=== PATIENT | male | born 1975 | race Caucasian/White ===

== ENCOUNTER 2020-09-19 18:05 | Emergency (ER) | payer OTHER ==
[~2020-09-19 18:05] MED LIST: COZAAR50 MG PO; DOXEPIN HCL100 MG PO; LOSARTAN-HCTZ1 EACH PO; NORVASC10 MG PO; REVATIO 20MG TA20 MG PO; TOPROL XL 25MG25 MG PO; TRAMADOL HCL50 MG PO; VOLTAREN **OUT75 MG PO
[2020-09-19] MEDS ORDERED: HYDROCODON-ACE1 EAC2 PO (20:14)
[2020-09-19] MEDS ORDERED: MUPIROCIN 2%22 GM TOP (20:14)
== END 2020-09-19 20:45 | disposition home or self-care (01) ==
LOC: FER 18:05
DX: T25.221A Burn of second degree of right foot, initial encounter (principal); I10 Essential (primary) hypertension; X12.XXXA Contact with other hot fluids, initial encounter; Y92.009 Unspecified place in unspecified non-institutional (private) residence as the place of occurrence of the external cause
CPT/HCPCS: 99283